=== PATIENT | male | born 1975 | race Caucasian/White ===

== ENCOUNTER → 2017-03-08 | Outpatient (CLI) | payer OTHER ==
[~2017-03-08] VITALS: Ht 152.4 cm; Wt 82.6 kg
[~2017-03-08] MED LIST: DIPROLENE 0.05%30 ML TP; GILTUSS TR TAB1 EACH PO; VISTARIL25 MG PO; ZITHROMAX1 G/PKT PO; ZYRTEC10 MG PO
== END | disposition home or self-care (01) ==
LOC: PPHC 13:28
DX: Z02.79 Encounter for issue of other medical certificate (principal)

== ENCOUNTER 2018-10-05 22:48 | Emergency (ER) | payer OTHER ==
[~2018-10-05] VITALS: Ht 167.6 cm; Wt 85.7 kg
[2018-10-06] MEDS ORDERED: LEVAQUIN750 MG PO (03:00)
[2018-10-06] MEDS ORDERED: MUPIROCIN22 GM TOP (03:02)
[2018-10-06] MEDS ORDERED: KETO10TA2 PO (03:02)
== END 2018-10-06 03:13 | disposition home or self-care (01) ==
LOC: ER 22:48
DX: L03.115 Cellulitis of right lower limb (principal)